=== PATIENT | female | born 1985 | race Caucasian/White ===

== ENCOUNTER 2016-03-01 13:34 | Emergency (ER) | payer OTHER ==
[2016-03-01 13:46] VITALS: BP 152/86; PULSE 78; RESP 18; TEMP 98; O2SAT 97
--- NOTE | 2016-03-01 14:51 | UCPHY ---
H & P Time Seen by Provider: 03/01/16 14:33 Patient Type: Established HPI/ROS: This patient 1st developed a cold 1 month ago and since then has been having similar symptoms of varying degrees of severity. She has phone were relatively well until 6 days ago at which time she developed headache, plugged ears, nasal congestion, and some neck pain but without sore throat or fever. She admits to minimal cough without chest pain or shortness of breath. REVIEW OF SYSTEMS: Constitutional: Fatigue and malaise without fever Eyes: No complaints ENT: Nasal congestion, ear fullness without pain denies sore throat Respiratory: Minimal cough, no shortness of breath Cardiac: No chest pain Gastrointestinal: Denies nausea, vomiting or diarrhea Genitourinary: Not addressed Musculoskeletal: Neck pain without generalized myalgias Skin: No rash Neurological: Headache Smoking Status: Never smoked Physical Exam: GENERAL: Well-appearing, well-nourished and in no acute distress. 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 EYES: , sclera anicteric, conjunctiva are normal. ENT: TMs normal, nares patent, mucus present in the nose. oropharynx clear without exudates. Moist mucous membranes. There is no tenderness to percussion over the facial sinuses. NECK: Normal range of motion, supple without lymphadenopathy or JVD. LUNGS: Breath sounds clear to auscultation bilaterally and equal. No wheezes rales or rhonchi. HEART: Regular rate and rhythm EXTREMITIES: Normal range of motion, NEUROLOGICAL: Cranial nerves II through XII grossly intact. Normal speech, normal gait. PSYCH: Normal mood, normal affect. SKIN: Warm, dry, normal turgor, no visible rashes or lesions. Constitutional: Initial Vital Signs Temperature (C) 36.6 C 03/01/16 13:44 Heart Rate 78 03/01/16 13:44 Respiratory Rate 18 03/01/16 13:44 Blood Pressure 152/86 H 03/01/16 13:44 O2 Sat (%) 97 03/01/16 13:44 O2 Delivery Mode Room Air Allergies/Adverse Reactions: No Known Allergies Allergy (Verified 01/16/15 09:43) Home Medications: Medication Instructions Recorded NK [No Known Home Meds] 03/01/16 Medical Decision Making Differential Diagnosis: I find nothing that would suggest that this was patient's symptoms are related to a bacterial illness such as sinusitis, otitis medias, slight drop throat or pneumonia. I do not believe that antibiotics are indicated. I do not feel that further investigation is necessary at this time. Departure - Departure Disposition: Home, Routine, Self-Care Clinical Impression: Upper respiratory infection Qualifiers: URI type: unspecified URI Qualifier Code: (J06.9) Acute upper respiratory infection, unspecified Condition: Good Instructions: Upper Respiratory Infection (ED) Additional Instructions: If your symptoms have not cleared in the next 5-7 days you should be re- evaluated. Cause for concern would be a fever greater than 101 degrees, chest pain, shortness of breath or any other worrisome symptoms. Try a nasal decongestant spray such as Afrin. Follow the directions on the label. Adult Pain & Fever Control: We recommend Acetaminophen (Tylenol) and Ibuprofen (Motrin, Advil) for pain and fever control. When fever is high or pain severe, both drugs can be used at the same time, but at different intervals. Please note the time differences. Your dose is: Acetaminophen [650]mg every 4 to 6 hours ibuprofen [600]mg every [6] hours with food OR naproxen Sodium (Aleve) [440]mg every 12 hours. Note: do not take Acetaminophen with Hydrocodone (Vicodin, Lortab) or Oxycodone (Percocet). These medications also contain Acetaminophen. No more than 3000 mg of Acetaminophen should be taken in 24 hours (for an adult) . The maximal dose of ibuprofen that it is safe in a 24-hour period is 2400 mg. You may take 400 mg every 4 hours, 600 mg every 6 hours or 800 mg every 8 hours safely. - PQRS PQRS Measurement: Not applicable
== END 2016-03-01 15:00 | disposition home or self-care (01) ==
LOC: CED 13:34
DX: J06.9 Acute upper respiratory infection, unspecified (principal); M54.2 Cervicalgia
CPT/HCPCS: 99213-PO; G0463-PO